=== PATIENT | male | born 1995 | race Caucasian/White ===

== ENCOUNTER 2018-04-19 15:18 | Emergency (ER) | payer OTHER ==
[~2018-04-19] VITALS: Ht 170.2 cm; Wt 92.5 kg
[2018-04-19 15:26] VITALS: Ht 170.2 cm; Wt 92.5 kg
[2018-04-19 17:04] VITALS: BP 131/68
== END 2018-04-19 17:04 | disposition home or self-care (01) ==
LOC: ED 15:18
DX: J02.9 Acute pharyngitis, unspecified (principal)